=== PATIENT | male | born 1995 | race Two or more races ===

== ENCOUNTER 2019-04-07 15:05 | Emergency (ER) | payer BC, OTHER ==
[~2019-04-07] VITALS: Ht 177.8 cm; Wt 99.8 kg
--- NOTE | 2019-04-07 15:50 | NUR ---
DIARRHEA, NAUSEA, CHILLS SINCE 2AM TODAY. PATIENT A/OX4, BREATHING EVEN AND UNLABORED, NO SOB NOTED. NEEDS ATTENDED. KEPT COMFORTABLE.
[2019-04-07] MEDS ORDERED: ONDANSETRON 4 MG TAB.RAPDIS ONE (16:14)
--- NOTE | 2019-04-07 16:18 | NUR ---
INFLUENZA SWAB SENT
[2019-04-07] MEDS ORDERED: ONDANSETRON 4 MG TAB.RAPDIS SL ONE (16:30)
--- NOTE | 2019-04-07 17:17 | NUR ---
Patient discharged to home in stable condition. Written and verbal after care instructions given. Patient verbalizes understanding of instruction.
[2019-04-07 17:19] VITALS: BP 124/65
== END 2019-04-07 17:19 | disposition home or self-care (01) ==
LOC: ER 15:12
DX: R19.7 Diarrhea, unspecified (principal)
CPT/HCPCS: 87804 ×2; 99283; Q0162